=== PATIENT | male | born 1970 | race Caucasian/White ===

== ENCOUNTER → 2018-01-11 17:01 | Outpatient (CLI) | payer OTHER, SELFPAY | PROVIDERS: Visit Provider Otolaryngology Otolaryngology/Facial Plastic Surgery | DX: J32.9 Chronic sinusitis, unspecified (principal) | CPT/HCPCS: 87070; 87077; 87205 ==

== ENCOUNTER → 2019-01-29 | Outpatient (CLI) | payer BC, SELFPAY | END | disposition home or self-care (01) | PROVIDERS: Referring Provider Otolaryngology Otolaryngology/Facial Plastic Surgery; Visit Provider Otolaryngology Otolaryngology/Facial Plastic Surgery | DX: J02.9 Acute pharyngitis, unspecified (principal) | CPT/HCPCS: 87070 ==

== ENCOUNTER 2019-05-02 17:24 | Emergency (ER) | payer BC, SELFPAY ==
[2019-05-02 17:24] VITALS: BP 147/96; PULSE 114; RESP 18; TEMP 37.9; O2SAT 97; BMI 33.0
--- NOTE | 2019-05-02 17:43 | ED.VIS.GEN ---
History of Present Illness Chief Complaint: Fever Informant: Patient, Significant Other Onset: Yesterday Context: Sudden Onset Timing: Continuous Quality: T-max 100.2 ?F. Aches Location: Generalized and GI Current Severity: Mild Maximum Severity: Moderate Worsened by: Light, p.o. intake Relieved by: Nothing Associated Symptoms: Headache, photophobia, diarrhea and nausea Narrative: Patient is a 48-year-old male with history of hypertension. Patient presents with fever documented to 100.2?F. He complains of global headache. He reports photophobia. Denies neck pain or neck stiffness. Denies rash. He denies rhinorrhea, congestion or postnasal drainage. He denies ear pain, decreased hearing during his ears. He denies sore throat. He denies cough or shortness of breath. He denies chest discomfort. Does report nausea and abdominal pain with diarrhea. He states he has had one loose stool per hour since early this morning. He does complain of thirst, dry mouth and orthostatic symptoms. He denies any ill contacts. Has not been on antibiotics in the past month. He does report decreased urine output. He also complains of bilateral testicular pain. He denies history of benign prostatic hypertrophy or history of prostatitis. He denies tenesmus. He denies rash. Prior similar symptoms: No Recent Illness/Hospitalization: No - Past Medical History (1) History of hypertension Status: Acute Past Medical History - Allergies and Home Meds Allergies/Adverse Reactions: Allergies pregabalin [From Lyrica] Allergy (Verified 05/02/19 17:26) Anaphylaxis Primary Care Physician: [facility] Doctor,Out of [Primary Care Provider] - 3-5 Days Prior records reviewed: No Past Medical History: None Surgical History: no surgical history Lives: Spouse/ Significant Other Smoking Status: Former smoker Alcohol: Rare Drugs: None Review of Systems General: Reports: Chills, Fever, Malaise, Sweats Eyes: Reports: - - Photophobia. Denies: Visual changes - bilaterally, Blurred Vision - bilaterally, Diplopia ENT: Reports: - - Slight hoarse voice. Denies: Bilateral ear pain, Rhinorrhea, Sore throat Cardiovascular: Denies: Chest pain, Palpitations Respiratory: Denies: Dyspnea, Cough, Dyspnea on exertion Gastrointestinal: Reports: Abdominal pain, Nausea, Diarrhea. Denies: Vomiting, Melena, Hematochezia Genitourinary: Denies: Dysuria, Hematuria, Frequency Musculoskeletal: Reports: Myalgias. Denies: Arthralgias, Neck pain, Back pain, Swelling, Extremity Pain, -, - Skin: Denies: Rash, Wounds Neurological: Reports: Headache. Denies: Weakness, Parasthesia, Numbness, -, - Endocrine: Denies: Polyuria, Polydipsia Hematologic: Denies: Easy bruising, Easy bleeding Physical Exam Vital Signs/Narrative: Vital Signs Temp Pulse Resp BP Pulse Ox 05/02/19 17:24 100.2 F H 114 H 18 147/96 H 97 Inital Vital Signs reviewed: Yes General: Well nourished, Well developed, No Acute Distress Head: Normocephalic, Atraumatic Eyes: Perrl, EOMI. Negative for: Pale conjunctiva, Scleral icterus ENT: No rhinorrhea, TM's clear, Dry mucous membranes Neck: Supple, Nontender, No lymphadenopathy, No JVD, - - There are no meningeal findings. Cardiovascular: Regular rhythm, No murmurs, Normal S1, Normal S2, Tachycardia Respiratory: No distress, CTA bilaterally, Chest nontender Abdomen: Soft, Nontender, Nondistended, Normal bowel sounds, No masses Back: Nontender, Normal Inspection Extremities: Nontender, No edema Skin: Normal color, No rash, No Trauma. Negative for: Cyanosis, Diaphoresis, Jaundice Neurological: Alert, Oriented x3, Cranial nerves II-XII grossly intact, Normal Strength, Normal Sensation Psychological: Normal affect, Normal Mood Diagnostic/Tx/Re-eval Laboratory Results 05/02/19 05/02/19 18:25 18:25 WBC 9.2 RBC 5.38 Hgb 16.6 H Hct 48.1 MCV 89.4 MCH 30.9 MCHC 34.5 RDW Std Deviation 40.2 RDW Coeff of Karine 12.3 Plt Count 210 MPV 8.9 Immature Gran % (Auto) 0.300 Neut % (Auto) 82.0 H Lymph % (Auto) 9.6 L [place] % (Auto) 7.4 Eos % (Auto) 0.4 Baso % (Auto) 0.3 Absolute Neuts (auto) 7.6 Absolute Lymphs (auto) 0.88 Nucleated RBC % 0 Sodium 136 Potassium 3.8 Chloride 104 Carbon Dioxide 27.0 Anion Gap 5 BUN 13 Creatinine 0.95 Estim Creat Clear Calc 98.19 Est GFR (MDRD) Af Amer 109 Est GFR (MDRD) Non-Af 90 BUN/Creatinine Ratio 13.7 Glucose 95 Calcium 8.5 White count is unremarkable. Hemoglobin is slightly elevated. CO2 and anion gap are normal. BUN to creatinine ratio is normal and GFR is 90. Patient states she has no urge to urinate after first liter. Second liter was ordered. He has had no diarrhea since arrival. - Rhythm Strip Rhythm Strip: Sinus Rhythm Rate: 110 Ectopy: None - Medical Decision Making She presents with infectious type symptoms. With fever, headache photophobia diarrhea suspect viral. Because he reports orthostatic symptoms clinically appears dehydrated basic medical panel was obtained to assess renal function and CO2. Since there are no skin lesions and specifically petechia purpura and no meningeal findings suspect viral cephalgia. Will hydrate with normal saline. Patient had small amount of loose stool. It was not watery. Since there is no evidence of acute kidney injury, normal CO2 and anion gap and no evidence of hypokalemia will discharge home with appropriate home-going instructions. Patient was reassessed at 2024. He looks much better. He reports feeling better. He has urinated. He has been instructed to take Imodium for the diarrhea and was given a prescription for Bentyl for the cramping pain. ED Disposition - Plan for ED Patient: Disposition: Home or Assisted Living Diagnosis: Fever due to virus, Diarrhea, Dehydration, Viral cephalgia Instructions: VIRAL SYNDROME (Adult) Prescriptions: Dicyclomine HCl [Bentyl] 20 mg PO TIDAC #20 cap Prescription Printed Referrals: [facility] Doctor,Out of [Primary Care Provider] - 3-5 Days Additional Instructions: Take Imodium for diarrhea as instructed on box. Drink plenty of fluids. If you become lightheaded or symptoms get worse follow-up with your doctor or return to the emergency department.
[2019-05-02 17:57] VITALS: BP 137/92; PULSE 96; RESP 18; O2SAT 96
[2019-05-02] MEDS: 0.9% Normal Saline 1,000 ML 1000 ML IV ×2 (18:19→19:36)
[2019-05-02] MEDS: Ondansetron 4 MG/2 ML Vial IV (18:20)
[2019-05-02 18:30] LABS: Absolute Lymphocyte Count 0.88 X10^3/uL (0.83-4.51); Absolute Neutrophil Count 7.6 X10^3/uL (2.0-7.7); Basophil# 0.03 X10^3/uL; Basophil% 0.3 % (0-1); Eosinophil# 0.04 X10^3/uL; Eosinophils% 0.4 % (0-5); Hematocrit 48.1 % (40-54); Hemoglobin 16.6 g/dL (13.0-16.5); Lymphocyte # 0.88 X10^3/ul (4.0); Lymphocyte % 9.6 % (19-41); Mean Corp Hgb Conc 34.5 g/dL (32-36); Mean Corpuscular Hgb 30.9 pg (27.0-32.0); Mean Corpuscular Volume 89.4 fL (80-94); Mean Platelet Vol. 8.9 fl (6.2-12.0); Monocyte# 0.68 X10^3/uL; Monocyte% 7.4 % (0-10); NRBC Flagged by Analyzer 0 % (0-5); Neutrophil # 7.55 X10^3/uL (2.7-7.7); Platelet Count 210 K/mm3 (150-450); RBC Distribution Width CV 12.3 % (11.6-14.6); RBC Distribution Width SD 40.2 fl (35.1-43.9); Red Blood Count 5.38 M/mm3 (4.6-6.2); White Blood Count 9.2 K/mm3 (4.4-11.0)
[2019-05-02 18:39] LABS: Anion Gap 5 (5-15); BUN 13 mg/dL (7-18); BUN/Creat Ratio 13.7 RATIO (10-20); Calcium,Total 8.5 mg/dL (8.5-10.1); Chloride 104 mmol/L (98-107); Creatinine, Serum 0.95 mg/dL (0.70-1.30); EST Glomerular Filtration Rate 90 mL/min (>60); Est Glom Filt Rate - Afr Amer 109 mL/min (>60); Estimated Creatinine Clearance 98.19 ml/min; Glucose 95 mg/dL (74-106); Potassium 3.8 mmol/L (3.5-5.1); Sodium Level 136 mmol/L (136-145)
[2019-05-02 19:45] VITALS: BP 145/91; PULSE 79; RESP 16; TEMP 37.3; O2SAT 97
[2019-05-02 20:05] VITALS: RESP 18
[2019-05-02] MEDS: Loperamide 2 MG Capsule 4 MG PO (20:40)
[2019-05-02 20:42] VITALS: BP 141/75; PULSE 74; RESP 18; O2SAT 98
== END 2019-05-02 20:44 | disposition home or self-care (01) ==
PROVIDERS: Emergency Provider Emergency Medicine
DX: R50.9 Fever, unspecified (principal); R19.7 Diarrhea, unspecified; E86.0 Dehydration; R51 Headache; H53.149 Visual discomfort, unspecified; R10.9 Unspecified abdominal pain; N50.811 Right testicular pain; N50.812 Left testicular pain; I10 Essential (primary) hypertension; Z79.899 Other long term (current) drug therapy; Z87.891 Personal history of nicotine dependence
CPT/HCPCS: 80048; 85025; 96361; 96374; 99284; J7030; J2405

== ENCOUNTER → 2020-06-09 05:48 | Outpatient (CLI) | payer BC, SELFPAY ==
[2020-04-30 14:53] VITALS: BMI 37.0
--- NOTE | 2020-06-09 05:49 | ECHOCS_ITS ---
Reason For Study: DYSPNEA Procedure This was a 2D Doppler, Color Flow transthoracic echocardiogram. The study was technically difficult. Contrast injection was performed. Exam performed in department. Left Ventricle Normal LV size. Left ventricular systolic function is normal. The estimated ejection fraction is 60 %. Stage 2 diastolic dysfunction. Right Ventricle Normal RV size. Normal systolic function. Atria Normal left atrium. Normal right atrium. Mitral Valve Normal mitral valve. Tricuspid Valve Normal tricuspid valve. Mild tricuspid valve insufficiency. Pulmonary artery systolic pressure is 30 mmHg. Aortic Valve Trisinus/trileaflet aortic valve. Pulmonic Valve Normal pulmonic valve. Great Vessels Mildly dilated aortic root. The pulmonary artery is normal size. Normal inferior vena cava. Pericardium/Pleural No pericardial effusion. Medication Diluted definity 3.0ml given slow IV push to enhance endocardial definition. MMode/2D Measurements & Calculations LVIDd: 4.6 cm IVSd: 0.93 cm Ao root diam: 3.9 cm LVIDs: 2.9 cm LVPWd: 0.93 cm RVDd: 3.8 cm FS: 37.6 % LAV(MOD-bp): 54.1 ml LVAd ap4: 34.0 cm2 SV(MOD-sp4): 84.5 ml LAV(MOD-bp) Indexed: 23.2 ml/m2 EDV(MOD-sp4): 111.9 ml LAV(MOD-sp2): 42.3 ml EDV(sp4-el): 115.9 ml LAV(MOD-sp4): 58.2 ml LVAs ap4: 14.1 cm2 ESV(MOD-sp4): 27.4 ml ESV(sp4-el): 27.2 ml EF(MOD-sp4): 75.5 % EF(sp4-el): 76.5 % SV(sp4-el): 88.7 ml LA A4 area: 20.9 cm2 LA dimension(2D): 4.1 cm RA A4 area: 12.7 cm2 Time Measurements MV dec time: 0.18 sec Doppler Measurements & Calculations MV E max nato: 80.3 cm/sec Lat Peak E' [place]: 12.6 cm/sec Med Peak E' [place]: 7.4 cm/sec MV A max nato: 50.2 cm/sec E/E' lat: 6.3 E/E' med: 10.9 MV E/A: 1.6 Ao V2 max: 133.0 cm/sec LV V1 max: 89.1 cm/sec PA V2 max: 126.1 cm/sec Ao max P.1 mmHg LV V1 max P.2 mmHg TR max nato: 251.2 cm/sec TR max P.1 mmHg Interpretation Summary Normal LV size. Left ventricular systolic function is normal. The estimated ejection fraction is 60 %. Stage 2 diastolic dysfunction. Pulmonary artery systolic pressure is 30 mmHg. Contrast injection was performed. Ordering Physician: Phyllis^Braeden^^^ Referring Physician: MILEY SKINNER Performed By: Gissell Raygoza, LEANNA, RVT
--- NOTE | 2020-06-09 16:33 | STRESSREP_ITS ---
Stress Test Report Exercise myocardial perfusion stress test. 49-year-old man with a history of elevated blood pressure. Stress protocol: Resting EKG demonstrates normal sinus rhythm with a rate of 66 bpm T wave inversions noted in lead III and aVF. Resting blood pressure is 140/94 mmHg. The patient exercised according to regular Sam protocol for a total duration of 7 minutes and 2 seconds. The maximum heart rate attained was 148 bpm which was 86% of max impacted heart rate the maximum workload was 8.5 metabolic equivalents. At rest the T wave inversions were noted as described. At peak exercise T wave inversions persisted in the inferior leads with upsloping ST depression noted in the inferior lateral leads. Was approximately 0.75 mm in l ead II and 1 mm noted in lead aVF. The test was terminated due to target heart rate being achieved as well as dyspnea. No clinical angina was noted. The peak blood pressure was 220/90 mmHg. Myocardial perfusion protocol. 15.0 mCi of technetium 99m sestamibi was injected at rest. The patient exercised according to regular Sam protocol for a total duration of 7 minutes. At peak exercise 44.8 mCi of technetium 99m sestamibi was injected stress images were obtained stress and rest images were reconstructed in comparing the short axis vertical long horizontal long axis. Gated images were also obtained Perfusion SPECT analysis: Review of the stress images demonstrate normal uptake of tracer noted in all areas of the myocardium the resting images similarly demonstrate normal uptake of tracer noted in all areas of the myocardium. No areas of reversibility are noted to suggest ischemia no previous infarct is noted. Gated SPECT analysis: The gated ejection fraction is 71%. Conclusion: Exercise stress test with no definitive EKG criteria for ischemia at a moderate workload. Good functional capacity. Hypertensive response to exercise.
== END ==
PROVIDERS: PCP Family Medicine; Referring Provider Internal Medicine Cardiovascular Disease; Visit Provider Internal Medicine Cardiovascular Disease
DX: R07.9 Chest pain, unspecified (principal); R06.00 Dyspnea, unspecified; I10 Essential (primary) hypertension; E78.5 Hyperlipidemia, unspecified
CPT/HCPCS: 78452; 93017; 93306; A9500; Q9957; A4216; C8929

== ENCOUNTER 2020-07-07 15:24 | Outpatient (RCR) | payer BC, SELFPAY ==
[2020-04-30 14:53] VITALS: BMI 37.0
== END 2020-07-14 23:59 ==
LOC: NS 15:24
PROVIDERS: PCP Family Medicine; Visit Provider Internal Medicine Cardiovascular Disease
DX: Z71.3 Dietary counseling and surveillance (principal); I10 Essential (primary) hypertension; E78.5 Hyperlipidemia, unspecified; R06.00 Dyspnea, unspecified; E66.9 Obesity, unspecified
CPT/HCPCS: 97802

== ENCOUNTER 2020-07-21 16:15 | Outpatient (RCR) | payer BC, SELFPAY ==
[2020-04-30 14:53] VITALS: BMI 37.0
== END 2020-07-21 23:59 | disposition home or self-care (01) ==
LOC: NS 16:15
PROVIDERS: PCP Family Medicine; Visit Provider Internal Medicine Cardiovascular Disease
DX: Z71.3 Dietary counseling and surveillance (principal); E66.9 Obesity, unspecified; E78.5 Hyperlipidemia, unspecified; I10 Essential (primary) hypertension; R06.00 Dyspnea, unspecified
CPT/HCPCS: 97803